=== PATIENT | female | born 1985 | race Caucasian/White ===

== ENCOUNTER 2018-01-10 07:28 | Inpatient (IN) | payer OTHER ==
[~2018-01-10] VITALS: Ht 162.6 cm; Wt 81.8 kg
[~2018-01-10 07:28] MED LIST: PRENTAB26 PO
[2018-01-10 08:02] VITALS: Ht 162.6 cm; Wt 81.8 kg
[2018-01-10] MEDS ORDERED: LACTATED RINGER'S 1000ML 1,000 ML IV SCH ×2 (08:47→14:09)
[2018-01-10 09:19] LABS: HEMATOCRIT 37.6 % (37-47); HEMOGLOBIN 12.5 g/dL (12.0-16.0); MEAN CELL VOLUME 90.6 fL (80-100); MEAN CORPUSCULAR HEMOGLOBIN 30.1 pg (25-34); MEAN CORPUSCULAR HGB CONC 33.2 g/dl (32-36); MEAN PLATELET VOLUME 10.5 fL (7.4-10.4); PLATELET COUNT 240 K/uL (130-400); RED CELL DISTRIBUTION WIDTH CV 13.3 % (11.5-14.5); RED CELL DISTRIBUTION WIDTH SD 43.5 fL (36.4-46.3); WHITE BLOOD COUNT 7.83 K/uL (4.8-10.8)
--- NOTE | 2018-01-10 09:23 | Progress Note ---
Progress Note Date of Service Jan 10, 2018. Progress Note Admit Note 32 F P3003 at 40.4 weeks admitted for post dates induction of labor. No problems. GBS is negative. FHT Cat 1. Cervix 2/50/-3//vertex/soft/ posterior. EFW is 7.5-8.0 lbs. Anticipate normal delivery.
[2018-01-10] MEDS ORDERED: MISOPROSTOL 25 MCG TAB PV ONE (09:30)
[2018-01-10] MEDS ORDERED: OXYTOCIN 30 UNITS/500ML NSS IV ONE (13:57)
--- NOTE | 2018-01-10 14:13 | Vaginal Delivery Summary ---
Vaginal Delivery Summary live male over intact perineum with vertex/arm compound presentation. Apgars 9/9 weight pending. Delayed cord clamping followed by cord blood. Placenta delivered spontaneously and intact. No tears. EBL 200 ml. Final sponge and instrument count are correct. Mom and baby in stable condition.
[2018-01-10] MEDS ORDERED: LANOLIN OINT EXT PRN (14:15)
[2018-01-10] MEDS ORDERED: IBUPROFEN 600 MG TAB PO PRN (14:15)
[2018-01-10] MEDS ORDERED: OXYTOCIN 30 UNITS/500ML NSS IV PRN (14:15)
[2018-01-10] MEDS ORDERED: DIPHTHERIA/TETANUS/PERTUSSIS 0.5 ML SYR/VIAL IM. ONE (14:15)
[2018-01-10] MEDS ORDERED: BENZOCAINE 20% AER SPR 82.5 GM CAN EXT PRN (14:15)
[2018-01-10] MEDS ORDERED: ACETAMINOPHEN 325 MG TAB PO PRN (14:15)
[2018-01-10] MEDS ORDERED: HYDROCORTISONE ACETATE 25 MG SUPP PR PRN (14:15)
[2018-01-10] MEDS ORDERED: SUPERCREAM 0.870 % 15GM JAR EXT PRN (14:15)
[2018-01-10 17:15] VITALS: BP 112/73; PULSE 70; TEMP 37.2; O2SAT 96
[2018-01-10] MEDS: DOCUSATE SODIUM 100 MG CAP PO SCH (19:59)
[2018-01-10 20:05] VITALS: BP 121/73; PULSE 86; TEMP 36.7
[2018-01-10 23:15] VITALS: BP 111/69; PULSE 70; TEMP 36.8; O2SAT 96
[2018-01-11] VITALS (7 sets, daily range): BP systolic 108–123; BP diastolic 69–79; PULSE 66–86; TEMP 36.6–37; O2SAT 97–98
[2018-01-11 06:39] LABS: HEMATOCRIT 35.3 % (37-47); HEMOGLOBIN 12.3 g/dL (12.0-16.0)
--- NOTE | 2018-01-11 07:09 | Discharge Instructions ---
Discharge Instructions Date of Service Jan 11, 2018. Admission Reason for Admission: Induction Discharge Discharge Diagnosis / Problem: Vaginal Delivery Discharge Goals Goal(s): Routine recovery after delivery Medications Continue Dispensed Medications: supercream, dermaplast, tucks, lansinoh Activity Recommendations Activity Limitations: per Instructions/Follow-up section . Instructions / Follow-Up Instructions / Follow-Up ACTIVITY RECOMMENDATIONS: * Gradual return to full activity over the next 2-3 weeks. * No lifting - nothing heavier than baby over the next 2-3 weeks. * Do not engage in vigorous exercise, sexual activity or sports until cleared by your physician. * Do not drive or operate any motorized equipment until cleared by your physician. * You may shower/bathe daily. BREAST CARE: If you are not breast feeding: * Wear a supportive bra 24 hours a day for one to two weeks. * Avoid stimulating your breasts and nipples as much as possible during the first few weeks after delivery. * When taking a shower, have the warm water hit your back, not breasts. * When your breasts feel full, apply ice packs. Usually three to four times a day helps ease the discomfort. * Take a mild pain medication (Tylenol/Motrin) when you are uncomfortable. If breast feeding: * Use breast milk to lubricate nipples. Lansinoh cream may be used for sore nipples. You do not need to remove cream prior to breast feeding. If using a different brand of cream, check the label for directions regarding removal of cream prior to nursing. * Wear a supportive bra. * If having problems with breasts or breast feeding, call a sales and service consultant or your health care provider. EPISIOTOMY CARE: After delivery, if you have an episiotomy (stitches), the following steps will ease discomfort and aid healing. * For the first 24 hours after delivery, place ice packs next to your episiotomy to help reduce swelling. * After the first 24 hour-period, sitz baths, either portable or in the tub, are suggested. A shower with a shower arm sprayed over the episiotomy may be comforting. * Nanci care should be done after each voiding and bowel movement. Squirt warm water from a plastic bottle over the perineum (region of the body between the anus and urinary opening) and pat dry. * Use Dermoplast to ease discomfort. Shake container. [place] directly over the episiotomy. * Place a Tucks on a clean sanitary pad next to your episiotomy. OVER THE COUNTER MEDICATION: * For discomfort or pain, you may use Acetaminophen (Tylenol), Ibuprofen (Advil ), or Naproxen (Aleve) following the package directions. * For constipation you may use Colace following the package directions. SPECIAL CARE INSTRUCTIONS: When you are discharged from the hospital, it is important for you to follow the instructions listed below: * During the first week at home, you should be able to care for yourself and your baby. In addition, the usual light household activities are encouraged. * Limit your activities to the way you feel. Do not try to clean the house or move furniture. Be sensible. * If you actively engage in sports and have done so up until the time of your delivery, you may resume these activities as soon as you feel able. This may take up to one month or even longer. Use good judgment. * Continue to take your vitamins for at least six weeks after the of your baby. * Your diet need not be limited unless you were on a special diet before your delivery. Breast-feeding mothers need around 2500 calories per day and at least 64-80 ounces of fluid per day (8 to 10 glasses). * You should eat foods from the four major food groups. Crash diets or fad diets are to be avoided. Eating lean meats, fresh fruits and vegetables, low-fat dairy products, high fiber foods and a regular exercise program, will help you get back to your pre- weight without putting your health at risk. * Constipation is sometimes a problem after delivery. Take a mild laxative as needed. If breast feeding, Milk of Magnesia is acceptable to use. You may use a suppository or Fleets enema if no episiotomy. * A daily shower or tub bath is suggested. Be sure to thoroughly and gently dry the perineum. * A bloody vaginal discharge will usually continue until around four weeks post . A small amount of bleeding may continue for as long as six weeks. Vaginal discharge changes from the bright red bleeding after delivery to pink then brownish and finally yellowish-pink before becoming white and disappearing. * Bleeding may increase with activity. Your first period may come in 4-8 weeks. If you are breast feeding, your period may be delayed even longer. * [place] (sex) can begin whenever both you and your partner feel comfortable and do not have any form of genital infection. It is recommended that you wait until after your return appointment and discuss with your physician. If you have questions, please talk to your health care practitioner. A condom should be used to prevent infection and . * Foreplay, gentle intercourse and lubrication is very important the first several times to prevent pain. A water-based lubricant such as K-Y jelly or Astroglide may be used. * Tampons may be used six weeks after delivery. * Douching should be avoided for 6 weeks after delivery. * If you have RH negative blood and your baby is RH positive, you will receive RHOGAM by injection prior to discharge. The nurse will give you a card to keep with you that has the date and place that you received RHOGAM after delivery. * During your care, you had a Rubella screen done to check for the presence of rubella antibodies in your blood. If your test was negative, you will receive a Rubella vaccine prior to discharge. This vaccine may cause a fever, soreness at the injection site and flu-like symptoms. If these symptoms persist, notify your health care practitioner. is not advised for three months after a Rubella vaccine. There is a higher chance of having a baby with defects if conceived within three months of getting the vaccine. * If you were discharged 24 hours from delivery or before 48 hours: Visiting nurses will come to your home 48 hours after discharge to assess you and your baby. The visiting nurse will meet with you while you are in the hospital to arrange a time and get directions to your home. * Verbalizes understanding of car seat law as reviewed with patient nursing. * Car Seat hand-out given and reviewed with patient by nursing. * Shaken baby information reviewed with patient by nursing. Call you doctor if: * Heavy bleeding (saturating several pads an hour) or passing clots the size of your fist. * A fever >101 degrees F (38.3 degrees C) on two occasions four hours apart and/or chills. * Unusual pain in the pelvic or vaginal areas. * "Baby Blues" lasting longer than two weeks. If you have any questions or concerns, call your health care practitioner at . FOLLOW-UP VISIT: * Please call the office at to schedule a 6 week examination. It is important you keep this appointment. * It is important for you to make arrangements for either yearly or twice yearly check-ups thereafter. Current Hospital Diet Patient's current hospital diet: Regular Diet, Regular OB Diet Discharge Diet Recommended Diet: Regular OB Diet Pending Studies Studies pending at discharge: no Medical Emergencies . Who to Call and When: Medical Emergencies: If at any time you feel your situation is an emergency, please call 911 immediately. . Non-Emergent Contact Non-Emergency issues call your: Primary Care Provider, Control Panel Builder . . "Provider Documentation" section prepared by Garett Fermin. .
--- NOTE | 2018-01-11 07:11 | OB/GYN Progress Note ---
UPH[employer]CH[employer]IC Progress Note Date of Service Jan 11, 2018. Subjective conversation w/ patient, physical exam Ambulation: ambulating normally Voiding: no voiding problems Passing Gas: Yes Diet Tolerance: Regular Diet Lochia: Small Feeding Type: Breast Feeding Pain: 0 Notes: Doing well, no concerns. Tolerating regular diet. Ambulating without difficulty. Lochia minimal. Would like to go home today. Objective Vital Signs Date Time Temp Pulse Resp B/P (MAP) Pulse Ox O2 Delivery O2 Flow Rate FiO2 01/11/18 03:15 36.8 76 20 108/69 (82) Room Air 01/10/18 23:15 36.8 70 18 111/69 (83) Room Air 01/10/18 23:15 96 Room Air 01/10/18 20:05 36.7 86 16 121/73 (89) Room Air 01/10/18 17:15 37.2 70 18 112/73 (86) 96 Room Air 01/10/18 17:15 96 Room Air Physical Exam General Appearance: WELL-APPEARING Respiratory/Chest: chest non-tender, lungs clear Cardiovascular: regular rate, rhythm Abdomen: normal bowel sounds, soft Fundus: Firm Extremities: normal range of motion, non-tender, no calf tenderness Laboratory Results Last 24 Hours Test 01/10/18 09:00 01/11/18 06:20 White Blood Count 7.83 K/uL Red Blood Count 4.15 M/uL Hemoglobin 12.5 g/dL 12.3 g/dL Hematocrit 37.6 % 35.3 % Mean Corpuscular Volume 90.6 fL Mean Corpuscular Hemoglobin 30.1 pg Mean Corpuscular Hemoglobin Concent 33.2 g/dl RDW Standard Deviation 43.5 fL RDW Coefficient of Variation 13.3 % Platelet Count 240 K/uL Mean Platelet Volume 10.5 fL Assessment and Plan Post- Day Number: 1 Continue Routine Care: -D/C home today -F/U in 6 weeks.
[2018-01-11] MEDS ORDERED: FERROUS SULFATE 325 MG TAB PO SCH (08:00)
[2018-01-11] MEDS ORDERED: PRENATAL VITAMIN TAB PO SCH (08:00)
[2018-01-11] MEDS: DOCUSATE SODIUM 100 MG CAP PO SCH (08:11)
[2018-01-11] MEDS ORDERED: BISACODYL 5 MG TABEC PO SCH (20:00)
[2018-01-12] MEDS ORDERED: BISACODYL 10 MG SUPP PR PRN (07:00)
== END 2018-01-11 17:20 | disposition home or self-care (01) | DRG 775 ==
LOC: C.LD 07:28 → C.OBG 17:16
PROVIDERS: ADMIT Obstetrics & Gynecology; ATTEND Obstetrics & Gynecology
PROC: 3E033VJ Introduction of Other Hormone into Peripheral Vein, Percutaneous Approach (ICD-10-PCS; principal; 2018-01-10)
PROC: 10E0XZZ Delivery of Products of Conception, External Approach (ICD-10-PCS; principal; 2018-01-10)
DX: O48.0 Post-term pregnancy (principal); Z3A.41 41 weeks gestation of pregnancy; Z37.0 Single live birth

== ENCOUNTER 2020-03-21 07:51 | Inpatient (IN) ==
[2020-03-21] MEDS ORDERED: BENZOCAINE 20% AER SPR 82.5 GM CAN EXT PRN (08:14)
[2020-03-21] MEDS ORDERED: DIPHTHERIA/TETANUS/PERTUSSIS 0.5 ML SYR/VIAL IM ONE (08:14)
[2020-03-21] MEDS ORDERED: SUPERCREAM 0.870% 15 GM JAR EXT PRN (08:14)
[2020-03-21] MEDS ORDERED: HYDROCORTISONE ACETATE 25 MG SUPP PR PRN (08:14)
[2020-03-21] MEDS ORDERED: OXYCODONE/ACETAMINOPHEN 5mg/325mg TAB PO PRN (08:14)
[2020-03-21] MEDS ORDERED: OXYTOCIN 30 UNITS/500 ML BAG IV PRN ×2 (08:14→08:16)
[2020-03-21] MEDS ORDERED: bisacodyL 10 MG SUPP PR PRN (08:14)
[2020-03-21] MEDS ORDERED: ACETAMINOPHEN 325 MG TAB PO PRN (08:14)
[2020-03-21] MEDS ORDERED: ACETAMINOPHEN W/CODEINE #3 1 TAB PO PRN (08:14)
[2020-03-21] MEDS ORDERED: IBUPROFEN 600 MG TAB PO PRN (08:14)
[2020-03-21] MEDS ORDERED: LACTATED RINGER'S 1,000 ML IV PRN (08:16)
[2020-03-21 08:53] LABS: Hematocrit (blood only) 35.5 % (37-47); Hemoglobin 11.8 g/dL (12.0-16.0); Mean Corpuscular Hemoglobin 29.3 pg (25-34); Mean Corpuscular Volume 88.1 fL (80-100); Mean Platelet Volume 10.2 fL (7.4-10.4); Platelet Count 239 K/uL (130-400); Red Blood Count 4.03 M/uL (4.2-5.4); White Blood Count 9.95 K/uL (4.8-10.8)
[2020-03-21 09:17] LABS: Mean Corpuscular Hgb Conc 33.2 g/dL (32-36)
--- NOTE | 2020-03-21 09:49 | History and Physical Report ---
DATE OF ADMISSION: 03/21/2020 She came in active labor, term. She had a set of twins. She has had several vaginal deliveries after that. When she arrived on the floor, she was fully dilated in active labor. Once we got the IV started, we ruptured her membranes, fluid was clear. Then in 1 push, she pushed out a live via direct occiput anterior position over an intact perineum. There was a tight nuchal cord x1 which was reduced over the head. Then the body was delivered without difficulty. I allowed the cord to pulse and remained attached to the infant for 1 minute, then I clamped the cord, the father cut the cord. I got cord blood with IV Pitocin running, I removed the placenta intact. Hemostasis was excellent. Estimated blood loss was only about 100 mL. The patient tolerated the procedure well. Apgars were 8 and 9 at 1 and 5 minute respectively Her blood type is A positive.
[2020-03-21] MEDS: DOCUSATE SODIUM 100 MG CAP PO SCH (20:07)
[2020-03-22 06:56] LABS: Hematocrit (blood only) 34.8 % (37-47); Hemoglobin 11.6 g/dL (12.0-16.0); Mean Corpuscular Hemoglobin 29.5 pg (25-34); Mean Corpuscular Hgb Conc 33.3 g/dL (32-36); Mean Corpuscular Volume 88.5 fL (80-100); Mean Platelet Volume 10.2 fL (7.4-10.4); Platelet Count 217 K/uL (130-400); RDW Coefficient of Variation 13.1 % (11.5-14.5); RDW Standard Deviation 42.2 fL (36.4-46.3); Red Blood Count 3.93 M/uL (4.2-5.4); White Blood Count 7.98 K/uL (4.8-10.8)
[2020-03-22] MEDS: DOCUSATE SODIUM 100 MG CAP PO SCH ×2 (08:41→19:51)
[2020-03-22] MEDS: PRENATAL VITAMIN 1 TAB PO SCH (08:41)
--- NOTE | 2020-03-22 11:27 | Obstetrical Progress Note ---
Date of Service March 22, 2020 Assessment & Plan Admission and Anticipated Discharge Date Admission Date: March 21, 2020 Physical Exam Physical Exam: abdomen soft and non tender no calf tenderness ambulating well vaginal bleeding is scant hgb 11.6 Results & Data ([facility]) Vital Signs (Past 12 Hours) Vital Signs Temp Pulse Resp BP 03/22/20 07:17 36.9 C 73 16 97/58 L 03/22/20 03:40 36.7 C 71 18 106/73 03/21/20 23:40 36.8 C 91 H 18 113/71
[2020-03-22] MEDS ORDERED: bisacodyL 5 MG TABEC PO SCH (20:00)
[2020-03-23 07:24] LABS: Hematocrit (blood only) 36.5 % (37-47); Hemoglobin 11.8 g/dL (12.0-16.0)
[2020-03-23] MEDS ORDERED: MEASLES, MUMPS & RUBELLA VIRUS VIAL SQ ONE (08:00)
[2020-03-23] MEDS: DOCUSATE SODIUM 100 MG CAP PO SCH (08:44)
[2020-03-23] MEDS: PRENATAL VITAMIN 1 TAB PO SCH (08:44)
--- NOTE | 2020-03-23 10:20 | Obstetrical Progress Note ---
Date of Service March 23, 2020 Assessment & Plan (1) Normal course: PPD #2 pt doing well No complaints dsic home with instructions Results & Data Vital Signs (Past 12 Hours) Vital Signs Temp Pulse Resp BP 03/23/20 07:50 36.6 C 89 18 123/80 03/22/20 23:30 36.9 C 80 18 115/79
== END 2020-03-23 11:40 | disposition home or self-care (01) | DRG 807 ==
LOC: OPB 07:51 → 4S1 07:53 → 4S2 13:42